=== PATIENT | female | born 1985 | race Caucasian/White ===

== ENCOUNTER 2017-02-13 04:17 | Emergency (ER) | payer OTHER ==
[~2017-02-13] VITALS: Ht 175.3 cm; Wt 70.5 kg
[~2017-02-13 04:17] MED LIST: IBUP-1152 PO; ONDA4TAB48 PO; PNV1TABL57 PO; ZAN150T
[2017-02-13 04:19] VITALS: BP 168/92; PULSE 56; RESP 16; O2SAT 95
--- NOTE | 2017-02-13 04:29 | ED.REPORT ---
HPI-Dental/Mouth Prob Date of Service Feb 13, 2017 ED Provider: Wilfred Nelson MD Pt is a 31 y.o. female who presents to the ED c/o left sided dental pain radiating to her jaw and left ear. Pt states that she was seen at last night and dx with a dental abscess, she was prescribed abx, Percocet, and ibuprofen. Pt claims that she has had no relief from her pain and has been unable to keep down the medication due to nausea and vomiting, she is requesting a dental block. She reports having a dentist appointment scheduled fro Sunday. Nursing Notes Stated Complaint: DENTAL PAIN AND ABSCESSES Chief Complaint: Dental Nursing Notes Reviewed: Yes Allergies: Coded Allergies: nitrofurantoin (Verified Allergy, Unknown, 06/29/09) Scheduled IBUPROFEN-Expunged Drug, Do Not Renew! (IBUPROFEN-Expunged Drug, Do Not Renew!) 800 Mg Tablet 800 MG PO QID PNV CMB#95/FERROUS FUMARATE/FA-Expunged Drug, (-Expunged Drug, Do Not Renew!) 1 Each Tablet 1 EACH PO DAILY Scheduled PRN Ondansetron (Zofran) 4 Mg Tab.rapdis 4 MG PO Q8 PRN PRN DISSOLVE UNDER TONGUE Ondansetron ODT (Ondansetron ODT) 8 Mg Tab.rapdis 8 MG PO QID PRN PRN For Nausea Ranitidine 150 MG Tablet (Zantac 150 MG Tablet) 150 Mg Tab DAILY PRN PRN General Time Seen by MD: 04:28 Chief Complaint Tooth pain Hx Obtained From: Patient Arrived By: Walk-in Location: : Tooth lower L molar Quality: Painful Radiation: : Ear right Severity: Current: Severe Recent Healthcare: No recent doctor visit, No recent hospitalization Past Medical History Past Medical History Anemia Past Surgical History None Family History Noncontributory Smoking History Current Every Day Smoker Social History Other Social History: , Lives with children, Local resident Ambulatory Status Independent Review of Systems Ears / Nose / Throat: Reports: Earache right, Mouth pain, Toothache GI: Reports: Nausea, Vomiting Complete sys rev & neg: except as marked. Physical Exam Initial Vital Signs Vital Signs (First) Date Time Temp Pulse Resp B/P Pulse Ox O2 Delivery O2 Flow Rate FiO2 02/13/17 04:19 36.4 56 16 168/92 95 Room Air Initial VS: Reviewed Head / Eyes: Atraumatic, Normocephalic, PERRL Respiratory: Breath sounds normal, Clear to auscultation, No respiratory distress Cardiovascular: Regular rate & rhythm, Heart sounds normal, Intact distal pulses Abdomen / GI: No distention Extremities: Vascular intact, Neuro intact Skin: Warm, Dry, No cyanosis Neurologic: Alert, Oriented, Nonfocal Psychiatric: Mood/affect normal, Behavior normal, Normal thought content ENT: Atraumatic, Airway patent Dental / Gums: Positive: Decay single tooth (17), Dental abscess (17) Neck: Atraumatic General/Constitutional: Awake, Alert, Well appearing, Well developed, Well hydrated, Well nourished, Not toxic appearing Appearance / Presentation: Positive: Uncomfortable Procedures Dental Nerve Block Time: 04:41 Block Performed by: ED physician Consent / Setup / Site Prep: Informed consent provided, Time-out performed, Topical anesthetic kellen, Hand hygiene observed, Stand sterile technique Anesthesia: Topical lidocaine, Inferior alveolar block (Left) Local Anesthesia: Lidocaine w epi 1% Post-Procedure / Complications: No complications, Condition improved, Tolerated procedure well, Patient stable, No bleeding Re-Eval/Medical Decision Med Decision/Clinical Course 31-year-old with significant tooth decay presents with pain in her left lower jaw with #17 carotid off to the gumline. She has been nauseated, not really keeping her pain meds down, and is just barely started antibiotics. A dental block with bupivacaine and lidocaine was placed. She has had some relief from that. Zofran also given two unable her to keep her meds down. Follow-up with dentist as planned. Source of Hx: Old records Re-Evaluation/Progress : Time of Eval: 04:52 Patient Status: Condition improved Re-Evaluation/Progress Note: Pt is feeling improved after dental block. Discussed plan for discharge, pt understands and agrees with plan. Counseled Regarding: Diagnosis, Need for follow-up, When/why to return to ED Discharge & Departure Primary Impression: Dental abscess Disposition: Home Discharge Condition All VS Reviewed: Yes Condition: Improved Patient Instructions: Dental Abscess (ED) Additional Instructions: Continue your previously ordered medications. Zofran additionally if needed for nausea, four times daily. Follow-up with your dentist as planned. Referrals: Stephanie Toro DO (PCP) Scribe Attestation Portions of this note were transcribed by Cr Vasquez. I, Dr. Nelson personally performed the history, physical exam and medical decision-making; I reviewed and confirmed the accuracy of the information in the transcribed note. Signed by: Marilou Da Silva, 02/13/17 and 0459 copies to: Stephanie Toro Christopher W MD Feb 13, 2017 04:29 CR VASQUEZ Feb 13, 2017 04:35
[2017-02-13] MEDS ORDERED: Bupivacaine-MPF 0.5% 30 mL Inj ONE (04:30)
[2017-02-13] MEDS ORDERED: Dexamethasone 20 mg/2 mL Oral Solution PO ONE (04:45)
[2017-02-13] MEDS ORDERED: Ondansetron 8 mg ODT Tablet PO ONE (04:45)
[2017-02-13] MEDS ORDERED: ONDA8TAB10 PO (04:46)
[2017-02-13 05:00] VITALS: BP 168/92; PULSE 56; RESP 16; O2SAT 95
== END 2017-02-13 05:00 | disposition home or self-care (01) ==
LOC: SED 04:17
DX: K04.7 Periapical abscess without sinus (principal); D64.9 Anemia, unspecified; F17.200 Nicotine dependence, unspecified, uncomplicated; Z88.1 Allergy status to other antibiotic agents